=== PATIENT | female | born 1960 | race Caucasian/White ===

== ENCOUNTER 2017-09-18 10:49 | Emergency (ER) | payer BC ==
[~2017-09-18] VITALS: Ht 160 cm; Wt 90.0 kg
[~2017-09-18 10:49] MED LIST: CHOL2000 PO; FLUO-81 PO; LISI10TA4 PO; MELO-102 PO; METF500T4 PO; OMEP20TA5 PO; POTA10CA44 PO
[2017-09-18] MEDS ORDERED: HYDROcodone/acetaminophen 10/325mg tab PO ONE (11:00)
[2017-09-18] MEDS ORDERED: fentaNYL/PF 50MCG/1 ML 2ML syringe IV ONE ×2 (11:05→12:30)
[2017-09-18] MEDS ORDERED: ondansetron/PF 4mg/2ml inj IV ONE (11:05)
[2017-09-18] MEDS ORDERED: ONDA4TAB12 PO (11:40)
[2017-09-18] MEDS ORDERED: OXYC-134 PO (11:40)
[2017-09-18] MEDS ORDERED: normal saline 1000ml 1,000 ML IV ONE (11:55)
[2017-09-18] MEDS ORDERED: fentaNYL/PF 50MCG/1 ML 2ML syringe ONE (12:36)
[2017-09-18 13:18] VITALS: BP 130/67
== END 2017-09-18 13:05 | disposition home or self-care (01) ==
LOC: ER 10:49
DX: S52.502A Unspecified fracture of the lower end of left radius, initial encounter for closed fracture (principal); I10 Essential (primary) hypertension; E11.9 Type 2 diabetes mellitus without complications; M19.90 Unspecified osteoarthritis, unspecified site; Z88.5 Allergy status to narcotic agent; Z79.84 Long term (current) use of oral hypoglycemic drugs; Z79.899 Other long term (current) drug therapy; W11.XXXA Fall on and from ladder, initial encounter; Y93.89 Activity, other specified; Y92.89 Other specified places as the place of occurrence of the external cause; Y99.8 Other external cause status
CPT/HCPCS: 29125; 73080; 73110; 96361; 96374; 96375; 96376; 99284; A4565; J2405; J3010

== ENCOUNTER 2020-04-22 13:45 | Emergency (ER) | payer BC ==
[~2020-04-22] VITALS: Ht 160 cm; Wt 90.2 kg
[~2020-04-22 13:45] MED LIST changes: +DOCU-28 PO; +DULA0.75 SQ; +HYDR-3972 PO; -LISI10TA4 PO; -METF500T4 PO; -OMEP20TA5 PO; -POTA10CA44 PO
[2020-04-22] MEDS ORDERED: normal saline 1000ml 1,000 ML IV ONE (14:55)
[2020-04-22] MEDS ORDERED: ondansetron/PF 4mg/2ml inj IV ONE (14:55)
[2020-04-22 15:15] LABS: BASOPHILS # (AUTO) 0.1 X10'3 (0-0.2); BASOPHILS % (AUTO) 0.9 % (0-1); EOSINOPHILS # (AUTO) 0.2 X10'3 (0-0.9); EOSINOPHILS % (AUTO) 3.1 % (0-6); HEMATOCRIT 44.2 % (35.0-45.0); HEMOGLOBIN 15.4 g/dl (12.0-16.0); LYMPHOCYTES # (AUTO) 2.8 X10'3 (1.1-4.8); LYMPHOCYTES % (AUTO) 35.2 % (21-51); MEAN CORPUSCULAR HEMOGLOBIN 32.8 PG (27.0-31.0); MEAN CORPUSCULAR HGB CONC 34.8 g/dL (33.0-36.5); MEAN CORPUSCULAR VOLUME 94.5 FL (78-98); MEAN PLATELET VOLUME 9.6 FL (7.4-10.4); MONOCYTES # (AUTO) 0.7 X10'3 (0-0.9); MONOCYTES % (AUTO) 8.9 % (2-12); NEUTROPHILS # (AUTO) 4.1 X10'3 (1.8-7.7); NEUTROPHILS % (AUTO) 51.9 % (42-75); PLATELET COUNT 229 X10'3 (140-440); RED BLOOD COUNT 4.68 X10'6 (4.20-5.60); RED CELL DISTRIBUTION WIDTH 13.5 % (11.5-14.5); WHITE BLOOD COUNT 7.9 X10'3 (4.5-11.0)
[2020-04-22 15:25] LABS: ALANINE AMINOTRANSFERASE 47 U/L (12-78); ALBUMIN 4.1 G/DL (3.4-5.0); ALBUMIN/GLOBULIN RATIO 1.2 (1.1-1.5); ALKALINE PHOSPHATASE 77 IU/L (46-116); ANION GAP 10 (8-16); ASPARTATE AMINO TRANSFERASE 27 U/L (10-37); BILIRUBIN,TOTAL 0.7 MG/DL (0.1-1.0); BLOOD UREA NITROGEN 20 MG/DL (7-18); CALCIUM 8.8 MG/DL (8.5-10.1); CHLORIDE 106 MMOL/L (99-107); CREATININE 1.11 MG/DL (0.40-0.90); GLUCOSE 91 MG/DL (70-104); LIPASE 227 U/L (73-393); POTASSIUM 3.8 MMOL/L (3.5-5.1); SODIUM 141 MMOL/L (135-145); TOTAL CARBON DIOXIDE 24.6 MMOL/L (24-32); TOTAL PROTEIN 7.6 G/DL (6.4-8.2); eGFR 51 ML/MIN
--- NOTE | 2020-04-22 15:54 | NUR ---
NO NEW PAIN ORDERS FROM .
[2020-04-22 16:35] LABS: CLARITY,URINE SLIGHTLY CLOUDY (Clear); COLOR,URINE YELLOW (Yellow); GLUCOSE, URINE NEGATIVE (Neg); KETONES,URINE NEGATIVE (Neg); LEUKOCYTE ESTERASE ,URINE MODERATE (Neg); NITRITES, URINE NEGATIVE (Neg); OCCULT BLOOD,URINE NEGATIVE (Neg); PROTEIN,URINE NEGATIVE (Neg); UROBILINOGEN,URINE 0.2 E.U/dL (0.2-1.0)
[2020-04-22 16:42] LABS: UA COLLECTION TYPE CLN CATCH MIDSTREAM
[2020-04-22 16:43] LABS: MUCUS STRANDS MANY /LPF (Neg); SQUAMOUS EPITHELIAL CELL,UR MANY /LPF (FEW); TRANSITIONAL EPI CELLS,URINE MODERATE /HPF
[2020-04-22 16:45] LABS: BACTERIA,URINE 1+ /HPF (Neg); RBC,URINE 0-2 /HPF (0-2)
[2020-04-22] MEDS ORDERED: mag hydrox/Alum hydrox/simeth 30ml oral suspension PO ONE (16:45)
[2020-04-22] MEDS ORDERED: LIDOcaine Viscous 15ml cup MM ONE (16:45)
[2020-04-22] MEDS ORDERED: ONDA4TAB6 PO (17:04)
[2020-04-22] MEDS ORDERED: CEPH250T PO (17:04)
[2020-04-22] MEDS ORDERED: PANT20TA18 PO (17:04)
[2020-04-22 17:33] VITALS: BP 150/94
== END 2020-04-22 17:34 | disposition home or self-care (01) ==
LOC: ER 13:46
DX: R10.13 Epigastric pain (principal); I10 Essential (primary) hypertension; E11.9 Type 2 diabetes mellitus without complications; K85.90 Acute pancreatitis without necrosis or infection, unspecified; M19.90 Unspecified osteoarthritis, unspecified site; Z79.899 Other long term (current) drug therapy; Z98.890 Other specified postprocedural states; Z88.5 Allergy status to narcotic agent; Z88.2 Allergy status to sulfonamides; Z79.82 Long term (current) use of aspirin
CPT/HCPCS: 36415; 71045; 80053; 81001; 83690; 83880; 84484; 85025; 93005; 96361; 96374; 99285; J2405; J7030; 96360

== ENCOUNTER 2025-04-25 13:20 | Outpatient (CLI) | payer BC ==
[~2025-04-25 13:20] MED LIST changes: +ONDA4TAB6 PO; +PANT20TA18 PO
--- NOTE | 2025-04-26 08:26 | RADIOLOGY REPORT ---
CLINICAL INFORMATION: PAIN IN RIGHT SHOULDER. TECHNIQUE: Multisequence multiplanar MRI images of the right shoulder were obtained without contrast. COMPARISON: None FINDINGS: Acromioclavicular joint: There is moderate acromioclavicular hypertrophy and moderate edema. There is Type 2 acromion. Small amount of fluid in the subacromial / subdeltoid bursa. Rotator cuff tendons: Mild tendinosis of the distal supraspinatus and infraspinatus tendons. Partial-thickness articular surface tear involving the supraspinatus tendon just distal to the myotendinous junction and extending up to 1.5 cm in proximal to distal dimension and measuring up to 0.9 cm in AP d imension, with portions of the tear approaching near full-thickness. Mild tendinosis of the distal subscapularis tendon without mild articular surface fraying just proximal to the insertion. Teres minor tendon is intact and otherwise unremarkable. Biceps tendon: Mild tendinosis of the proximal long head biceps tendon. No tear. Labrum: No labral tear identified. Bones: No fracture or focal marrow contusion. Muscles: Normal muscle bulk. No atrophy. Other: Motion artifact limits evaluation. IMPRESSION: 1. Motion limited study. 2. Rotator cuff tendinosis with partial-thickness to near full-thickness articular surface tear of the supraspinatus tendon. 3. Moderate acromioclavicular hypertrophy with mild subacromial/subdeltoid bursitis. 4. Mild tendinosis of the proximal long head biceps tendon. 5. Additional findings as described above.
== END 2025-04-25 23:59 | disposition home or self-care (01) ==
LOC: MRI02 13:20
PROVIDERS: ATTEND Nurse Practitioner
DX: M75.121 Complete rotator cuff tear or rupture of right shoulder, not specified as traumatic (principal); M25.511 Pain in right shoulder; R60.0 Localized edema; M89.311 Hypertrophy of bone, right shoulder; M67.813 Other specified disorders of tendon, right shoulder
CPT/HCPCS: 73221